=== PATIENT | female | born 1965 | race American Indian/Alaskan Native ===

== ENCOUNTER 2021-12-21 23:55 | Inpatient (IN) | payer SELFPAY ==
[2021-12-22] MEDS ORDERED: SODIUM CHLORIDE 0.9% 1000 ML IV SOLN IV ONE (00:41)
[2021-12-22] MEDS ORDERED: ACETAMINOPHEN 650 MG RECT SUPP PR ONE (00:42)
--- NOTE | 2021-12-22 00:45 | Emergency Department Report ---
ED General Adult HPI - General Chief complaint: Pain General Stated complaint: PEG TUBE DISLODGED Time Seen by Provider: 12/22/21 00:40 Source: patient, family, EMS ( EMS documentation not available at time of chart dictation ), RN notes reviewed, old records reviewed Mode of arrival: Stretcher Limitations: Altered Mental Status, Physical Limitation - History of Present Illness Initial comments: The patient was evaluated in the emergency department for symptoms described in the history of present illness. He/she was evaluated in the context of the global COVID-19 pandemic, which necessitated consideration that the patient might be at risk for infection with the virus that causes COVID-19. Institutional protocols and algorithms that pertain to the evaluation of patients at risk for COVID-19 are in a state of rapid change based on information released by regulatory bodies including the CDC and federal and state organizations. These policies and algorithms were followed during the patient's care in the emergency department. Please note that these policies, procedures and recommendations changed on a rapid basis. This is an unfortunate 56-year-old female with a history of end-stage esophageal cancer, who is currently a DO NOT RESUSCITATE, DO NOT INTUBATE. She is currently on home hospice for 3 weeks. She is not currently receiving chemotherapy or radiation therapy. She presents to the ER with her daughter, Ms. Solomon Stevenson; [phone] History obtained from patient's daughter, Ms. Stevenson. Patient presents today with her daughter requesting replacement of a feeding tube. Patient had a feeding tube placed in her left upper quadrant approximately 1 month ago at [facility]. The tube was dislodged today. The daughter does not have any additional complaints or concerns. The patient is a DO NOT RESUSCITATE, DO NOT INTUBATE. Patient's daughter articulates that patient's esophageal cancer is end-stage, and patient and family are interested only in palliative and comfort care measures only. -: This evening - Related Data Allergies Allergy/AdvReac Type Severity Reaction Status Date / Time No Known Allergies Allergy Unverified 12/22/21 00:04 ED Review of Systems ROS: Stated complaint: PEG TUBE DISLODGED Other details as noted in HPI Constitutional: malaise, weakness Respiratory: denies: wheezing Cardiovascular: as per HPI (Heart racing) Gastrointestinal: other (Dislodged feeding tube). denies: nausea, vomiting, diarrhea Neurological: weakness ED Past Medical Hx - Past Medical History Previous Medical History?: Yes Hx of Cancer: Yes (esophageal cancer) - Surgical History Past Surgical History?: Yes Additional Surgical History: PEG tube - Social History Smoking Status: Never Smoker Substance Use Type: None ED Physical Exam - General Limitations: Altered Mental Status, Physical Limitation General appearance: anxious, in distress - Head Head exam: Present: atraumatic, normocephalic - Eye Eye exam: Present: normal appearance - ENT ENT exam: Present: mucous membranes dry - Neck Neck exam: Present: normal inspection. Absent: tenderness, meningismus - Respiratory Respiratory exam: Present: respiratory distress. Absent: rales, rhonchi, stridor - Cardiovascular Cardiovascular Exam: Present: normal rhythm, tachycardia, normal heart sounds. Absent: bradycardia, irregular rhythm, systolic murmur, diastolic murmur, rubs, gallop - GI/Abdominal GI/Abdominal exam: Present: soft, tenderness, other (The left upper quadrant is tender. Left upper quadrant stoma is noted. There is purulent material noted coming from the stoma). Absent: distended, guarding, rebound, rigid, pulsatile mass - Extremities Exam Extremities exam: Present: normal inspection, other (2+ pulses noted in the bilateral upper and lower extremities. There is no palpable cord. negative Homans sign. Muscular compartments are soft. The pelvis is stable.). Absent: calf tenderness - Back Exam Back exam: Present: normal inspection. Absent: tenderness, paraspinal tenderness - Neurological Exam Neurological exam: Present: altered, other (The patient is awake. The patient is moaning. Her eyes are open spontaneously) - Psychiatric Psychiatric exam: Present: anxious - Skin Skin exam: Present: warm, dry, intact, normal color. Absent: rash ED Course Vital Signs 12/22/21 12/22/21 12/22/21 00:04 00:38 00:45 Temperature 98.7 F Pulse Rate 126 H 113 H 158 H Respiratory 26 H 31 H 30 H Rate Blood Pressure 125/78 O2 Sat by Pulse 94 99 99 Oximetry 12/22/21 12/22/21 12/22/21 01:01 01:15 01:31 Temperature Pulse Rate 160 H 156 H 148 H Respiratory 38 H 29 H 24 Rate Blood Pressure 131/92 131/92 O2 Sat by Pulse 100 99 100 Oximetry 12/22/21 12/22/21 12/22/21 01:45 02:01 02:15 Temperature Pulse Rate 144 H 137 H 132 H Respiratory 33 H 26 H 22 Rate Blood Pressure 131/92 188/157 188/157 O2 Sat by Pulse 100 99 99 Oximetry 12/22/21 12/22/21 12/22/21 02:30 03:02 03:16 Temperature Pulse Rate 131 H 117 H 117 H Respiratory 26 H 20 15 Rate Blood Pressure 188/157 114/94 69/42 O2 Sat by Pulse 98 100 99 Oximetry 12/22/21 12/22/21 12/22/21 03:30 03:46 04:00 Temperature Pulse Rate 114 H 112 H 109 H Respiratory 17 24 22 Rate Blood Pressure 69/42 69/42 69/43 O2 Sat by Pulse 99 99 99 Oximetry 12/22/21 12/22/21 04:15 04:31 Temperature Pulse Rate 100 H 100 H Respiratory 19 18 Rate Blood Pressure 69/42 69/45 O2 Sat by Pulse 100 100 Oximetry - Reevaluation(s) Reevaluation #1: 12/22/21 03:22 Differential diagnosis, including but not limited to: Bacteremia, viremia, pneumonia, UTI, sepsis, dehydration, abscess, cellulitis, dislodged feeding tube, esophageal cancer, encounter for advanced directive discussion Assessment and plan: 56-year-old female with a dislodged feeding tube. This is complicated by the fact that the feeding tube is a frustrating tube, and placed within the past month. There is obvious purulent material coming from the feeding tube, and the patient is also found to be septic, manifested by tachycardia, fever, lactic acidosis, and leukocytosis. Multiple extensive discussions were had with patient's family member Ms. Stevenson at the bedside. The patient is DO NOT RESUSCITATE, DO NOT INTUBATE. Family is only interested in comfort care measures and palliative measures. They are agreeable to fluids, pain medicine and antibiotics. They specifically are not interested in central line placement, intubation, mechanical ventilation, CPR, chest compressions or vasopressor therapy. Patient is also found to be hypercalcemic. I did specifically discuss my impression with the daughter that I am concerned that she may have severe sepsis or septic shock, and that she may without aggressive interventions. However, given that articulated goals of care are for comfort and palliative and palliation, vasopressors, central line are not not in accordance with goals of care, and therefore, will not be pursued by family and patient Given goals of care and advanced directives this is very reasonable. Explained to family that given fever, sepsis, fresh PEG tube stoma, I would not be able to replace the feeding tube. Family is agreeable to admission and hospitalization for correction of sepsis hypercalcemia, etc. Contacted GI physician on-call, Dr. Olaf Britton discussed the patient's history, physical, laboratory studies and imaging studies, and clinical impression. She will follow in consultation. Hospital physician, Dr. Yanet Wynne, To admit patient to the medical service Overall prognosis is quite poor. Ms. Stevenson is aware 12/22/21 03:33 12/22/21 04:22 12/22/21 05:26 ED Medical Decision Making - Lab Data Result diagrams: 12/22/21 01:05 12/22/21 01:05 Vital Signs 12/22/21 00:04 Temperature 98.7 F Pulse Rate 126 H Respiratory 26 H Rate Blood Pressure 125/78 O2 Sat by Pulse 94 Oximetry Lab Results 12/22/21 12/22/21 12/22/21 Range/Units 01:05 01:05 01:05 WBC 19.0 H (4.5-11.0) K/mm3 RBC 3.29 L (3.65-5.03) M/mm3 Hgb 10.2 (10.1-14.3) gm/dl Hct 33.0 (30.3-42.9) % MCV 100 H (79-97) fl MCH 31 (28-32) pg MCHC 31 (30-34) % RDW 16.6 H (13.2-15.2) % Plt Count 140 (140-440) K/mm3 Lymph % (Auto) 8.8 L (13.4-35.0) % [place] % (Auto) 6.3 (0.0-7.3) % Eos % (Auto) 0.7 (0.0-4.3) % Baso % (Auto) 0.1 (0.0-1.8) % Lymph # (Auto) 1.7 (1.2-5.4) K/mm3 [place] # (Auto) 1.2 H (0.0-0.8) K/mm3 Eos # (Auto) 0.1 (0.0-0.4) K/mm3 Baso # (Auto) 0.0 (0.0-0.1) K/mm3 Seg Neutrophils % 84.1 H (40.0-70.0) % Seg Neutrophils # 16.0 H (1.8-7.7) K/mm3 APTT 27.8 (24.2-36.6) Sec. Sodium 146 H (137-145) mmol/L Potassium 4.0 (3.6-5.0) mmol/L Chloride 112.1 H (98-107) mmol/L Carbon Dioxide 23 (22-30) mmol/L Anion Gap 15 mmol/L BUN 33 H (7-17) mg/dL Creatinine 0.7 (0.6-1.2) mg/dL Estimated GFR > 60 ml/min BUN/Creatinine Ratio 47 % Glucose 122 H (65-100) mg/dL Lactic Acid (0.7-2.0) mmol/L Calcium 12.7 H* (8.4-10.2) mg/dL Magnesium 2.20 (1.7-2.3) mg/dL Total Bilirubin 0.60 (0.1-1.2) mg/dL AST 46 H (5-40) units/L ALT 21 (7-56) units/L Alkaline Phosphatase 388 H (35-129) units/L Total Creatine Kinase 92 (30-135) units/L Total Protein 7.3 (6.3-8.2) g/dL Albumin 1.8 L (3.9-5) g/dL Albumin/Globulin Ratio 0.3 % TSH (0.270-4.200) mlU/mL 12/22/21 12/22/21 Range/Units 01:05 01:05 WBC (4.5-11.0) K/mm3 RBC (3.65-5.03) M/mm3 Hgb (10.1-14.3) gm/dl Hct (30.3-42.9) % MCV (79-97) fl MCH (28-32) pg MCHC (30-34) % RDW (13.2-15.2) % Plt Count (140-440) K/mm3 Lymph % (Auto) (13.4-35.0) % [place] % (Auto) (0.0-7.3) % Eos % (Auto) (0.0-4.3) % Baso % (Auto) (0.0-1.8) % Lymph # (Auto) (1.2-5.4) K/mm3 [place] # (Auto) (0.0-0.8) K/mm3 Eos # (Auto) (0.0-0.4) K/mm3 Baso # (Auto) (0.0-0.1) K/mm3 Seg Neutrophils % (40.0-70.0) % Seg Neutrophils # (1.8-7.7) K/mm3 APTT (24.2-36.6) Sec. Sodium (137-145) mmol/L Potassium (3.6-5.0) mmol/L Chloride (98-107) mmol/L Carbon Dioxide (22-30) mmol/L Anion Gap mmol/L BUN (7-17) mg/dL Creatinine (0.6-1.2) mg/dL Estimated GFR ml/min BUN/Creatinine Ratio % Glucose (65-100) mg/dL Lactic Acid 3.90 H* (0.7-2.0) mmol/L Calcium (8.4-10.2) mg/dL Magnesium (1.7-2.3) mg/dL Total Bilirubin (0.1-1.2) mg/dL AST (5-40) units/L ALT (7-56) units/L Alkaline Phosphatase (35-129) units/L Total Creatine Kinase (30-135) units/L Total Protein (6.3-8.2) g/dL Albumin (3.9-5) g/dL Albumin/Globulin Ratio % TSH 4.860 H (0.270-4.200) mlU/mL - EKG Data -: EKG Interpreted by Ia Rate: tachycardia - EKG Data 12/22/21 03:19 The EKG is interpreted at 03: 03 Low voltage, sinus rhythm, tachycardia, 116 bpm. Normal axis, normal P wave axis, atrial enlargement, QTC 5 7 8 ms. This is an abnormal EKG. This is not a STEMI - Radiology Data Radiology results: report reviewed, image reviewed [facility] [address] [place] [address] Cat Scan Report Signed Patient: ELOISA STEVENSON MR#: [id number] : 1965 Acct:[id number] Age/Sex: 56 / F ADM Date: 12/21/21 Loc: ED Attending Dr: Ordering Physician: JIMMIE TREVIZO MD Date of Service: 12/22/21 Procedure(s): CT abdomen pelvis w con Accession Number(s): [id number] cc: JIMMIE TREVIZO MD CT ABDOMEN AND PELVIS WITH CONTRAST INDICATION / CLINICAL INFORMATION: luq abscess. TECHNIQUE: Axial CT images were obtained through the abdomen and pelvis after 75 cc Omnipaque [address] scans at this location are performed using CT dose reduction for ALARA by means of automated exposure control. COMPARISON: None available. FINDINGS: LOWER CHEST: Moderate subsegmental atelectasis of the right lower lobe. 1.5 cm pulmonary nodule right lower lobe with central low attenuation. Small dependent right pleural effusion. LIVER: Grossly abnormal appearance of the right hepatic lobe. An expansile predominantly hypoattenuating multiloculated cystic lesion is present with some internal septation and multiple peripheral cysts. Additional hypoattenuating lesion of the lateral segment left hepatic lobe is present. Portal vein is patent. GALLBLADDER / BILE DUCTS: Gallstones and/or sludge without cholecystitis. Biliary ducts grossly unremarkable. SPLEEN: No significant abnormality. PANCREAS: Pancreas is grossly unremarkable. ADRENALS: No significant abnormality. KIDNEYS/URETERS: No stones or hydronephrosis. No solid renal lesion. STOMACH / DUODENUM / SMALL BOWEL: A hypoattenuating mass measuring 2.1 cm this closely approximated to the greater curvature of the mid fundus. No distinct air to suggest diverticulum. The duodenum and small bowel demonstrate no acute findings. No mesenteric lesions are clearly demonstrated. COLON: Moderate amount stool noted throughout the large bowel. APPENDIX: No significant abnormality. PERITONEUM: No free air or free fluid are present within the abdomen or pelvis. LYMPH NODES: No significant adenopathy. AORTA / ARTERIES: Severe atherosclerotic calcification without acute abnormality. IVC / VEINS: No significant abnormality. URINARY BLADDER: Nonspecific circumferential wall thickening. REPRODUCTIVE ORGANS: No significant abnormality. SKELETAL SYSTEM: No significant abnormality. ADDITIONAL ABDOMINAL/PELVIC FINDINGS: None. IMPRESSION: 1. Probable neoplastic process within the liver. 2. Additional 2.1 cm hypoattenuating lesion closely approximating the greater curvature of the stomach thought to be contiguous with the gastric wall as opposed to the adjacent pancreas. No distinct evidence of atrophy suggests diverticulum. Differential considerations include gastrointestinal stromal tumor, non-aerated diverticulum, other neoplastic process. 3. Other findings as detailed. Signer Name: Caleb Viramontes II, MD Signed: 12/22/2021 2:55 AM Workstation Name: [id number] Transcribed By: RICH Dictated By: CALEB VIRAMONTES II, MD Electronically Authenticated By: CALEB VIRAMONTES II, MD Signed Date/Time: 12/22/21254 DD/ 8 TD/TT: Critical Care Time: Yes Critical care time in (mins) excluding proc time.: 45 Critical care attestation.: If time is entered above; I have spent that time in minutes in the direct care of this critically ill patient, excluding procedure time. ED Disposition Clinical Impression: Esophageal cancer, Hypercalcemia, Sepsis, Dehydration, Advance directive in chart Disposition: 09 ADMITTED INPATIENT Is pt being admited?: Yes Does the pt Need Aspirin: No Condition: Poor
[2021-12-22 01:26] LABS: Basophils % (Auto) 0.1 % (0.0-1.8); Eosinophils # (Auto) 0.1 K/mm3 (0.0-0.4); Eosinophils % (Auto) 0.7 % (0.0-4.3); Hemoglobin 10.2 gm/dl (10.1-14.3); Lymphocytes # (Auto) 1.7 K/mm3 (1.2-5.4); Lymphocytes % (Auto) 8.8 % (13.4-35.0); Mean Corpuscular HGB Conc 31 % (30-34); Mean Corpuscular Volume 100 fl (79-97); Monocytes # (Auto) 1.2 K/mm3 (0.0-0.8); Monocytes % (Auto) 6.3 % (0.0-7.3); Red Blood Count 3.29 M/mm3 (3.65-5.03); Red Cell Distribution Width 16.6 % (13.2-15.2)
--- NOTE | 2021-12-22 01:27 | XRay Report ---
CHEST 1 VIEW INDICATION / CLINICAL INFORMATION: esophageal ca sepsis. COMPARISON: None available. FINDINGS: SUPPORT DEVICES: Right-sided venous access device terminates within the superior vena cava. HEART / MEDIASTINUM: Heart size is within normal limits. Mediastinal contour demonstrates no signific ant abnormality. LUNGS / PLEURA: Partially calcified hilar lymph nodes. Scattered granulomas bilaterally within the up per lungs. Left lung otherwise clear. Interstitial stranding overlying the right hemidiaphragm compat ible with atelectasis. The right lung otherwise clear. Mild elevation of the right hemidiaphragm. BONES: No significant osseous abnormality. ADDITIONAL FINDINGS: No significant additional findings. IMPRESSION: 1. Atelectatic changes are suggested overlying the right hemidiaphragm. Lungs otherwise are clear. Signer Name: Jan Wood II, MD Signed: 12/22/2021 1:23 AM Workstation Name: [id number]
[2021-12-22 01:44] LABS: Alanine Aminotransferase 21 units/L (7-56); Albumin 1.8 g/dL (3.9-5); Blood Urea Nitrogen 33 mg/dL (7-17); Hemolysis Index 1
[2021-12-22 01:54] LABS: Platelet Count 140 K/mm3 (140-440)
[2021-12-22] MEDS ORDERED: PIPERACILLIN/TAZOBACTAM 3.375 3.375 GM/50 ML BAG IV ONE (01:55)
[2021-12-22] MEDS ORDERED: VANCOMYCIN 750 MG in SODIUM CHLORIDE 0.9% 500 ML 500 ML IV ONE (01:55)
[2021-12-22] MEDS ORDERED: ONDANSETRON 4 MG/2 ML INJ IV ONE (01:56)
[2021-12-22] MEDS ORDERED: MORPHINE 4 MG/1 ML INJ IV ONE (01:56)
[2021-12-22 01:57] LABS: BUN/Creatinine Ratio 47
[2021-12-22 01:58] LABS: Calcium 12.7 mg/dL (8.4-10.2)
[2021-12-22] MEDS ORDERED: LACTATED RINGERS 1,000 ML IV ONE (02:01)
[2021-12-22] MEDS ORDERED: VANCOMYCIN/NS 1 GM/250 ML 1 GM/250 ML BAG IV ONE (03:00)
--- NOTE | 2021-12-22 03:00 | Cat Scan Report ---
CT ABDOMEN AND PELVIS WITH CONTRAST INDICATION / CLINICAL INFORMATION: luq abscess. TECHNIQUE: Axial CT images were obtained through the abdomen and pelvis after 75 cc Omnipaque [address] scans at this location are performed using CT dose reduction for ALARA by means of automated exposure control. COMPARISON: None available. FINDINGS: LOWER CHEST: Moderate subsegmental atelectasis of the right lower lobe. 1.5 cm pulmonary nodule right lower lobe with central low attenuation. Small dependent right pleural effusion. LIVER: Grossly abnormal appearance of the right hepatic lobe. An expansile predominantly hypoattenuat ing multiloculated cystic lesion is present with some internal septation and multiple peripheral cyst s. Additional hypoattenuating lesion of the lateral segment left hepatic lobe is present. Portal vein is patent. GALLBLADDER / BILE DUCTS: Gallstones and/or sludge without cholecystitis. Biliary ducts grossly unre markable. SPLEEN: No significant abnormality. PANCREAS: Pancreas is grossly unremarkable. ADRENALS: No significant abnormality. KIDNEYS/URETERS: No stones or hydronephrosis. No solid renal lesion. STOMACH / DUODENUM / SMALL BOWEL: A hypoattenuating mass measuring 2.1 cm this closely approximated t o the greater curvature of the mid fundus. No distinct air to suggest diverticulum. The duodenum and small bowel demonstrate no acute findings. No mesenteric lesions are clearly demonstrated. COLON: Moderate amount stool noted throughout the large bowel. APPENDIX: No significant abnormality. PERITONEUM: No free air or free fluid are present within the abdomen or pelvis. LYMPH NODES: No significant adenopathy. AORTA / ARTERIES: Severe atherosclerotic calcification without acute abnormality. IVC / VEINS: No significant abnormality. URINARY BLADDER: Nonspecific circumferential wall thickening. REPRODUCTIVE ORGANS: No significant abnormality. SKELETAL SYSTEM: No significant abnormality. ADDITIONAL ABDOMINAL/PELVIC FINDINGS: None. IMPRESSION: 1. Probable neoplastic process within the liver. 2. Additional 2.1 cm hypoattenuating lesion closely approximating the greater curvature of the stomac h thought to be contiguous with the gastric wall as opposed to the adjacent pancreas. No distinct zen dence of atrophy suggests diverticulum. Differential considerations include gastrointestinal stromal tumor, non-aerated diverticulum, other neoplastic process. 3. Other findings as detailed. Signer Name: Jan Wood II, MD Signed: 12/22/2021 2:55 AM Workstation Name: [id number]
[2021-12-22] MEDS ORDERED: ACETAMINOPHEN 650 MG RECT SUPP PR PRN (03:52)
[2021-12-22] MEDS ORDERED: MAGNESIUM HYDROXIDE (MOM) ORAL LIQD UDC PO PRN (03:52)
[2021-12-22] MEDS ORDERED: ONDANSETRON 4 MG/2 ML INJ IV PRN (03:52)
[2021-12-22] MEDS ORDERED: MORPHINE 4 MG/1 ML INJ IV PRN (03:52)
--- NOTE | 2021-12-22 04:01 | History and Physical Report ---
History of Present Illness Date of examination: 12/22/21 Date of admission: 12/22/2021 Chief complaint: Feeding tube Malfunction History of present illness: 56-year-old female with known history of end-stage was a 5-year past presenting to the emergency room today accompanied by daughter with a complaint of accidental exposure from a PEG tube. Daughter is requesting PEG tube replacement. Patient had PEG tube placed in the left upper quadrant about a month ago at an outside hospital but tube got dislodged today. Otherwise there was no other major complaints. Patient is currently DO NOT RESUSCITATE and DO NOT INTUBATE. Work-up in the emergency room today, significant findings were that of leukocytosis of 19, sodium of 146, BUN of 33 and creatinine of 1.7., Lactic acid of 3.9, calcium 12.7. Chest x-ray is significant for atelectatic changes overlying the right hemidiaphragm. Lungs are otherwise clear. CT of the abdomen and pelvis reveals: 1. Probable metastatic lesions within the liver from known esophageal cancer. 2. Additional 2.1 cm hypoattenuating lesion closely approximating the greater curvature of the stomach and GE junction compatible with known esophageal carcinoma. 3. Tract from the percutaneous gastrostomy tube is well formed with no intra- abdominal abscess. A small amount of fluid along the superficial soft tissues of the abdominal wall within the tract present possibly reflective of superficial abscess. Patient has been started on IV fluid and empiric IV antibiotics. Daughter who is by the bedside request only comfort measures. Past History Past Medical History: other (Esophageal ca.) Past Surgical History: Other (Peg tube) Social history: no significant social history Family history: no significant family history Medications and Allergies Allergies Allergy/AdvReac Type Severity Reaction Status Date / Time No Known Allergies Allergy Unverified 12/22/21 00:04 Active Meds: Active Medications Acetaminophen (Acetaminophen 650 Mg Rect Supp) 650 mg KS Q4H PRN PRN Reason: Pain MILD(1-3)/Fever >100.5/MOORE Heparin Sodium (Porcine) (Heparin 5,000 Unit/1 Ml Vial) 5,000 unit SUB-Q Q8HR RODNEY Vancomycin HCl (Vancomycin/Ns 1 Gm/250 Ml) 1 gm in 250 mls @ 250 mls/hr IV ONCE ONE Stop: 12/22/21 03:59 Last Admin: 12/22/21 03:17 Dose: 250 mls/hr Sodium Chloride (Nacl 0.9% 1000 Ml) 1,000 mls @ 150 mls/hr IV DIRECT RODNEY Magnesium Hydroxide (Magnesium Hydroxide (Mom) Oral Liqd Udc) 30 ml PO Q4H PRN PRN Reason: Constipation Morphine Sulfate (Morphine 2 Mg/1 Ml Inj) 2 mg IV Q4H PRN PRN Reason: Pain, Moderate (4-6) Morphine Sulfate (Morphine 4 Mg/1 Ml Inj) 4 mg IV Q4H PRN PRN Reason: Pain , Severe (7-10) Ondansetron HCl (Ondansetron 4 Mg/2 Ml Inj) 4 mg IV Q8H PRN PRN Reason: Nausea And Vomiting Sodium Chloride (Sodium Chloride 0.9% 10 Ml Flush Syringe) 10 ml IV BID RODNEY Sodium Chloride (Sodium Chloride 0.9% 10 Ml Flush Syringe) 10 ml IV PRN PRN PRN Reason: LINE FLUSH Review of Systems ROS unobtainable: due to mental status Exam - Constitutional Vitals: Temp Pulse Resp BP Pulse Ox 98.7 F 132 H 22 188/157 99 12/22/21 00:04 12/22/21 02:15 12/22/21 02:15 12/22/21 02:15 12/22/21 02:15 General appearance: Present: no acute distress, cachectic, other (Dry Oral Mucosa) - EENT Eyes: Present: PERRL, EOM intact. Absent: scleral icterus ENT: hearing intact, clear oral mucosa, dentition normal - Neck Neck: Present: supple, normal ROM - Respiratory Respiratory effort: normal Respiratory: bilateral: CTA - Cardiovascular Rhythm: regular Heart Sounds: Present: S1 & S2. Absent: gallop, systolic murmur, diastolic murmur, rub, click - Extremities Extremities: no ischemia, pulses intact, pulses symmetrical, No edema, normal temperature, normal color, Full ROM Peripheral Pulses: within normal limits - Abdominal General gastrointestinal: Present: soft, non-tender, non-distended, normal bowel sounds, other (Surgical site of peg tube in LUQ) - Integumentary Integumentary: Present: clear, warm, dry, normal turgor. Absent: rash - Musculoskeletal Musculoskeletal: generalized weakness - Psychiatric Psychiatric: cooperative - Neurologic Neurologic: other (Obtunded) Results - Labs CBC & Chem 7: 12/22/21 01:05 12/22/21 01:05 Labs: Abnormal lab results 12/22/21 12/22/21 12/22/21 Range/Units 01:05 01:05 01:05 WBC 19.0 H (4.5-11.0) K/mm3 RBC 3.29 L (3.65-5.03) M/mm3 MCV 100 H (79-97) fl RDW 16.6 H (13.2-15.2) % Lymph % (Auto) 8.8 L (13.4-35.0) % [place] # (Auto) 1.2 H (0.0-0.8) K/mm3 Seg Neutrophils % 84.1 H (40.0-70.0) % Seg Neutrophils # 16.0 H (1.8-7.7) K/mm3 Sodium 146 H (137-145) mmol/L Chloride 112.1 H (98-107) mmol/L BUN 33 H (7-17) mg/dL Glucose 122 H (65-100) mg/dL Lactic Acid 3.90 H* (0.7-2.0) mmol/L Calcium 12.7 H* (8.4-10.2) mg/dL AST 46 H (5-40) units/L Alkaline Phosphatase 388 H (35-129) units/L Albumin 1.8 L (3.9-5) g/dL TSH (0.270-4.200) mlU/mL 12/22/21 12/22/21 Range/Units 01:05 02:17 WBC (4.5-11.0) K/mm3 RBC (3.65-5.03) M/mm3 MCV (79-97) fl RDW (13.2-15.2) % Lymph % (Auto) (13.4-35.0) % [place] # (Auto) (0.0-0.8) K/mm3 Seg Neutrophils % (40.0-70.0) % Seg Neutrophils # (1.8-7.7) K/mm3 Sodium (137-145) mmol/L Chloride (98-107) mmol/L BUN (7-17) mg/dL Glucose (65-100) mg/dL Lactic Acid 2.60 H* (0.7-2.0) mmol/L Calcium (8.4-10.2) mg/dL AST (5-40) units/L Alkaline Phosphatase (35-129) units/L Albumin (3.9-5) g/dL TSH 4.860 H (0.270-4.200) mlU/mL Assessment and Plan Assessment: 1.Sepsis 2.Dehydration 3.Hypercalcemia 4.H/O Esophageal Ca. 5.Peg tube Malfunction Plan: 1.Admitted and placed on IV fluid and empiric antibiotics 2.Will await culture results 3.GI consult for peg tube replacement DVT prophylaxis: SQ Heparin. Full Code Status: DNR/DNI
[2021-12-22] MEDS: SODIUM CHLORIDE 0.9% 1000 ML 1,000 ML IV SCH ×2 (06:30→15:03)
[2021-12-22] MEDS: HEPARIN 5,000 UNIT/1 ML VIAL SUB-Q SCH ×3 (06:49→21:41)
[2021-12-22] MEDS: metroNIDAZOLE/NS 500 MG/100 ML 500 MG/100 ML BAG IV SCH ×3 (09:48→23:59)
[2021-12-22] MEDS: CEFEPIME/NS 2 GM/100 ML 2 GM/100 ML BAG IV SCH ×2 (09:48→21:41)
[2021-12-22] MEDS ORDERED: VANCOMYCIN PHARMACY TO DOSE IV SCH (10:00)
--- NOTE | 2021-12-22 10:56 | Event Note ---
Date: 12/22/21 Patient seen at bedside. Alert and attempts to talk but only mumbles. Groans when abdomen is palpated. Currently awaiting GI to replace palliative PEG tube. We will continue empiric antibiotics for now.
[2021-12-22] MEDS ORDERED: METOPROLOL TARTRATE 5 MG/5 ML INJ IV ONE (13:06)
[2021-12-22] MEDS ORDERED: NEOMY 3.5 MG/BACIT 400 UNITS/POLY B 5000 UNITS/GM OINT PACKET TP ONE (13:08)
[2021-12-22] MEDS: MORPHINE 2 MG/1 ML INJ IV PRN ×2 (13:32→23:51)
--- NOTE | 2021-12-22 14:11 | Electrocardiograph Report ---
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
--- NOTE | 2021-12-22 14:25 | Gastroenterology Consultation ---
History of Present Illness - Reason for Consult Consult date: 12/22/21 Infected PEG Requesting physician: BERTHA MERINO - History of Present Illness The history is per the chart and daughter; the patient is nonverbal. She has mets esophageal cancer and was recently placed on hospice. A palliative PEG tube was placed last month at [facility], but she was brought to the ER last night after the PEG fell out. There was pus present at the fistula, and a CT showed a superficial abscess pocket. She had an elevated WBC and lactic acid. There have been no fevers overnight. Past History Past Medical History: other (Esophageal ca. (stage IV, on hospice, mets to liver)) Past Surgical History: Other (Peg tube) Social history: no significant social history, lives with family, AND/DNR-allow natural , other (in hospice at home) Family history: no significant family history Medications and Allergies Allergies Allergy/AdvReac Type Severity Reaction Status Date / Time No Known Allergies Allergy Unverified 12/22/21 00:04 Active Meds: Active Medications Acetaminophen (Acetaminophen 650 Mg Rect Supp) 650 mg ND Q4H PRN PRN Reason: Pain MILD(1-3)/Fever >100.5/MOORE Heparin Sodium (Porcine) (Heparin 5,000 Unit/1 Ml Vial) 5,000 unit SUB-Q Q8HR RODNEY Last Admin: 12/22/21 06:49 Dose: Not Given Sodium Chloride (Nacl 0.9% 1000 Ml) 1,000 mls @ 150 mls/hr IV DIRECT RODNEY Last Admin: 12/22/21 06:30 Dose: 150 mls/hr Cefepime HCl (Cefepime/Ns 2 Gm/100 Ml) 2 gm in 100 mls @ 200 mls/hr IV Q12H RODNEY; Protocol Last Admin: 12/22/21 09:48 Dose: 200 mls/hr Metronidazole (Flagyl 500 Mg/100 Ml) 500 mg in 100 mls @ 100 mls/hr IV Q8H RODNEY; Protocol Last Admin: 12/22/21 09:48 Dose: 100 mls/hr Vancomycin HCl 750 mg/ Sodium (Chloride) 265 mls @ 166.667 mls/hr IV Q12H RODNEY Magnesium Hydroxide (Magnesium Hydroxide (Mom) Oral Liqd Udc) 30 ml PO Q4H PRN PRN Reason: Constipation Morphine Sulfate (Morphine 2 Mg/1 Ml Inj) 2 mg IV Q4H PRN PRN Reason: Pain, Moderate (4-6) Last Admin: 12/22/21 13:32 Dose: 2 mg Morphine Sulfate (Morphine 4 Mg/1 Ml Inj) 4 mg IV Q4H PRN PRN Reason: Pain , Severe (7-10) Last Admin: 12/22/21 09:58 Dose: 4 mg Ondansetron HCl (Ondansetron 4 Mg/2 Ml Inj) 4 mg IV Q8H PRN PRN Reason: Nausea And Vomiting Sodium Chloride (Sodium Chloride 0.9% 10 Ml Flush Syringe) 10 ml IV BID RODNEY Last Admin: 12/22/21 10:00 Dose: 10 ml Sodium Chloride (Sodium Chloride 0.9% 10 Ml Flush Syringe) 10 ml IV PRN PRN PRN Reason: LINE FLUSH I HAVE REVIEWED AND RECONCILED MEDICATIONS Review of Systems - Review of Systems ROS unobtainable: due to mental status Exam - Constitutional Vital Signs: Temp Pulse Resp BP Pulse Ox 98.7 F 153 H 14 89/63 100 12/22/21 00:04 12/22/21 13:28 12/22/21 08:00 12/22/21 06:22 12/22/21 08:00 General appearance: mild distress, cachectic - EENT Eyes: PERRL, EOM intact ENT: clear oral mucosa, no thrush - Neck Neck: supple, normal ROM - Respiratory Respiratory effort: normal Respiratory: bilateral: CTA - Cardiovascular Rhythm: regular Heart Sounds: Present: S1 & S2 Extremities: no ischemia, No edema - Gastrointestinal General gastrointestinal: Present: soft, tender, non-distended, other (Purulent drainage at PEG site, and mild swelling/heat/tenderness) - Integumentary Integumentary: Present: clear, warm - Neurologic Neurological: disoriented - Labs CBC & Chem 7: 12/22/21 01:05 12/22/21 01:05 Lab Results: Laboratory Results - last 24 hr 12/22/21 12/22/21 12/22/21 01:05 01:05 01:05 WBC 19.0 H RBC 3.29 L Hgb 10.2 Hct 33.0 MCV 100 H MCH 31 MCHC 31 RDW 16.6 H Plt Count 140 Lymph % (Auto) 8.8 L [place] % (Auto) 6.3 Eos % (Auto) 0.7 Baso % (Auto) 0.1 Lymph # (Auto) 1.7 [place] # (Auto) 1.2 H Eos # (Auto) 0.1 Baso # (Auto) 0.0 Seg Neutrophils % 84.1 H Seg Neutrophils # 16.0 H APTT 27.8 Sodium 146 H Potassium 4.0 Chloride 112.1 H Carbon Dioxide 23 Anion Gap 15 BUN 33 H Creatinine 0.7 Estimated GFR > 60 BUN/Creatinine Ratio 47 Glucose 122 H Lactic Acid Calcium 12.7 H* Magnesium 2.20 Total Bilirubin 0.60 AST 46 H ALT 21 Alkaline Phosphatase 388 H Total Creatine Kinase 92 Total Protein 7.3 Albumin 1.8 L Albumin/Globulin Ratio 0.3 TSH 12/22/21 12/22/21 12/22/21 01:05 01:05 02:17 WBC RBC Hgb Hct MCV MCH MCHC RDW Plt Count Lymph % (Auto) [place] % (Auto) Eos % (Auto) Baso % (Auto) Lymph # (Auto) [place] # (Auto) Eos # (Auto) Baso # (Auto) Seg Neutrophils % Seg Neutrophils # APTT Sodium Potassium Chloride Carbon Dioxide Anion Gap BUN Creatinine Estimated GFR BUN/Creatinine Ratio Glucose Lactic Acid 3.90 H* 2.60 H* Calcium Magnesium Total Bilirubin AST ALT Alkaline Phosphatase Total Creatine Kinase Total Protein Albumin Albumin/Globulin Ratio TSH 4.860 H 12/22/21 12/22/21 12/22/21 06:34 09:15 11:00 WBC RBC Hgb Hct MCV MCH MCHC RDW Plt Count Lymph % (Auto) [place] % (Auto) Eos % (Auto) Baso % (Auto) Lymph # (Auto) [place] # (Auto) Eos # (Auto) Baso # (Auto) Seg Neutrophils % Seg Neutrophils # APTT Sodium Potassium Chloride Carbon Dioxide Anion Gap BUN Creatinine Estimated GFR BUN/Creatinine Ratio Glucose Lactic Acid 2.00 1.10 Calcium 8.8 D Magnesium Total Bilirubin AST ALT Alkaline Phosphatase Total Creatine Kinase Total Protein Albumin Albumin/Globulin Ratio TSH Assessment and Plan - Patient Problems (1) Abdominal wall abscess at site of surgical wound Current Visit: Yes Status: Acute Plan to address problem: - Given the active purulent drainage, I would not replace the PEG tube (jodi with elevated WBC and lactic acid). - With an esophageal mass seen on CT, I do not favor Dobhoff feeding. - I will place a consult for PICC/TPN for palliative/hospice purposes as this would be the least invasive solution at present. The daughter is in agreement. - We will sign off; please call if needed. (2) Esophageal cancer, stage IV Current Visit: Yes Status: Acute
[2021-12-22] MEDS ORDERED: AMINO ACIDS 4.25%/DEXTROSE 10% 2,000 ML IV SCH (17:00)
--- NOTE | 2021-12-22 17:24 | XRay Report ---
CHEST 1 VIEW 12/22/2021 4:02 PM INDICATION / CLINICAL INFORMATION: picc placement. COMPARISON: Exam done earlier today FINDINGS: SUPPORT DEVICES: Left upper extremity PICC tip is projecting into the jugular vein. Right-sided clavi an port appears in stable position. HEART / MEDIASTINUM: Stable. LUNGS / PLEURA: Stable scattered calcified granulomata and right basilar atelectasis. No pneumothorax . ADDITIONAL FINDINGS: No significant additional findings. IMPRESSION: 1. Left upper extremity PICC tip projects into the jugular vein, repositioning needed. Signer Name: Lee Cronin MD Signed: 12/22/2021 5:19 PM Workstation Name: [id number]
[2021-12-22] MEDS: VANCOMYCIN 750 MG in SODIUM CHLORIDE 0.9% 250ML 250 ML IV SCH (18:50)
[2021-12-23] MEDS: SODIUM CHLORIDE 0.9% 1000 ML 1,000 ML IV SCH ×2 (02:27→09:12)
[2021-12-23 05:45] LABS: Basophils % (Auto) 0.1 % (0.0-1.8); Eosinophils # (Auto) 0.1 K/mm3 (0.0-0.4); Eosinophils % (Auto) 0.3 % (0.0-4.3); Hematocrit 26.3 % (30.3-42.9); Hemoglobin 8.2 gm/dl (10.1-14.3); Lymphocytes # (Auto) 0.8 K/mm3 (1.2-5.4); Lymphocytes % (Auto) 4.8 % (13.4-35.0); Mean Corpuscular HGB Conc 31 % (30-34); Mean Corpuscular Volume 101 fl (79-97); Monocytes # (Auto) 0.9 K/mm3 (0.0-0.8); Monocytes % (Auto) 5.4 % (0.0-7.3); Red Cell Distribution Width 16.4 % (13.2-15.2)
[2021-12-23 05:46] LABS: Platelet Count 84 K/mm3 (140-440)
[2021-12-23 06:00] LABS: Blood Urea Nitrogen 24 mg/dL (7-17); Hemolysis Index 0
[2021-12-23 06:15] LABS: BUN/Creatinine Ratio 48
[2021-12-23] MEDS: VANCOMYCIN 750 MG in SODIUM CHLORIDE 0.9% 250ML 250 ML IV SCH ×2 (06:52→18:28)
[2021-12-23] MEDS: HEPARIN 5,000 UNIT/1 ML VIAL SUB-Q SCH ×3 (06:53→21:42)
--- NOTE | 2021-12-23 08:07 | Progress Note ---
Assessment and Plan Assessment and plan: 1.Sepsis 2.Dehydration 3.Hypercalcemia 4.H/O Esophageal Ca. 5.Peg tube Malfunction Severe hypokalemia -Potassium this morning was 2.8 -I ordered 40 mEq of IV potassium, I will recheck BMP this afternoon Plan: 1.Admitted and placed on IV fluid and empiric antibiotics -Blood culture is on the low side of normal -Continue with IV fluids and IV antibiotics; patient is on IV Flagyl, cefepime and vancomycin 2.Will await culture results -Blood cultures negative so far 3.GI consult for peg tube replacement -GI evaluated the patient and recommend palliative TPN, ordered a PICC line. Patient started on TPN -Recommend againest PEG tube replacement because patient has abdominal wall infection DVT prophylaxis: SQ Heparin. Full Code Status: DNR/DNI History Interval history: Patient was seen and evaluated this morning Patient was minimally responsive Management plan was discussed with the daughter Hospitalist Physical - Physical exam Narrative exam: Not in cardiopulmonary distress. The patient appeared well nourished and normally developed. Vital signs as documented. Head exam is unremarkable. No scleral icterus . Neck is without jugular venous distension, thyromegaly, or carotid bruits. Lungs are clear to auscultation. Cardiac exam reveals regular rate and Rhythm. Abdominal exam reveals normal bowel sounds, nontender, no organomegaly. Extremities are nonedematous and both femoral and pedal pulses are normal. 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 - Constitutional Vitals: Temp Pulse Resp BP Pulse Ox 96.8 F L 126 H 20 93/66 99 12/23/21 04:05 12/23/21 04:05 12/23/21 04:05 12/23/21 04:05 12/23/21 04:05 General appearance: Present: no acute distress, cachectic, other (Dry Oral Mucosa) Results - Labs CBC & Chem 7: 12/23/21 05:13 12/23/21 05:13 Labs: Laboratory Last Values WBC 17.1 K/mm3 (4.5-11.0) H 12/23/21 05:13 RBC 2.60 M/mm3 (3.65-5.03) L 12/23/21 05:13 Hgb 8.2 gm/dl (10.1-14.3) L 12/23/21 05:13 Hct 26.3 % (30.3-42.9) L D 12/23/21 05:13 MCV 101 fl (79-97) H 12/23/21 05:13 MCH 31 pg (28-32) 12/23/21 05:13 MCHC 31 % (30-34) 12/23/21 05:13 RDW 16.4 % (13.2-15.2) H 12/23/21 05:13 Plt Count 84 K/mm3 (140-440) L 12/23/21 05:13 Lymph % (Auto) 4.8 % (13.4-35.0) L 12/23/21 05:13 [place] % (Auto) 5.4 % (0.0-7.3) 12/23/21 05:13 Eos % (Auto) 0.3 % (0.0-4.3) 12/23/21 05:13 Baso % (Auto) 0.1 % (0.0-1.8) 12/23/21 05:13 Lymph # (Auto) 0.8 K/mm3 (1.2-5.4) L 12/23/21 05:13 [place] # (Auto) 0.9 K/mm3 (0.0-0.8) H 12/23/21 05:13 Eos # (Auto) 0.1 K/mm3 (0.0-0.4) 12/23/21 05:13 Baso # (Auto) 0.0 K/mm3 (0.0-0.1) 12/23/21 05:13 Seg Neutrophils % 89.4 % (40.0-70.0) H 12/23/21 05:13 Seg Neutrophils # 15.2 K/mm3 (1.8-7.7) H 12/23/21 05:13 APTT 27.8 Sec. (24.2-36.6) 12/22/21 01:05 Sodium 147 mmol/L (137-145) H 12/23/21 05:13 Potassium 2.8 mmol/L (3.6-5.0) L* D 12/23/21 05:13 Chloride 118.4 mmol/L (98-107) H 12/23/21 05:13 Carbon Dioxide 20 mmol/L (22-30) L 12/23/21 05:13 Anion Gap 11 mmol/L 12/23/21 05:13 BUN 24 mg/dL (7-17) H 12/23/21 05:13 Creatinine 0.5 mg/dL (0.6-1.2) L 12/23/21 05:13 Estimated GFR > 60 ml/min 12/23/21 05:13 BUN/Creatinine Ratio 48 % 12/23/21 05:13 Glucose 141 mg/dL (65-100) H 12/23/21 05:13 Lactic Acid 1.10 mmol/L (0.7-2.0) 12/22/21 09:15 Calcium 11.0 mg/dL (8.4-10.2) H D 12/23/21 05:13 Phosphorus 2.20 mg/dL (2.5-4.5) L 12/23/21 05:13 Magnesium 1.50 mg/dL (1.7-2.3) L 12/23/21 05:13 Total Bilirubin 0.60 mg/dL (0.1-1.2) 12/22/21 01:05 AST 46 units/L (5-40) H 12/22/21 01:05 ALT 21 units/L (7-56) 12/22/21 01:05 Alkaline Phosphatase 388 units/L (35-129) H 12/22/21 01:05 Total Creatine Kinase 92 units/L (30-135) 12/22/21 01:05 Total Protein 7.3 g/dL (6.3-8.2) 12/22/21 01:05 Albumin 1.8 g/dL (3.9-5) L 12/22/21 01:05 Albumin/Globulin Ratio 0.3 % 12/22/21 01:05 TSH 4.860 mlU/mL (0.270-4.200) H 12/22/21 01:05 Microbiology: Microbiology 12/22/21 01:05 Peripheral/Venous Blood Culture - Preliminary NO GROWTH AFTER 24 HOURS 12/22/21 01:33 Peripheral/Venous Blood Culture - Preliminary NO GROWTH AFTER 24 HOURS Active Medications - Current Medications Current Medications: Generic Name Dose Route Start Last Admin Trade Name Freq PRN Reason Stop Dose Admin Acetaminophen 650 mg 12/22/21 03:52 Acetaminophen 650 Mg Rect Supp VA Q4H PRN Pain MILD(1-3)/Fever >100.5/MOORE Heparin Sodium (Porcine) 5,000 unit 12/22/21 06:00 12/23/21 06:53 Heparin 5,000 Unit/1 Ml Vial SUB-Q Not Given Q8HR RODNEY Sodium Chloride 1,000 mls @ 150 mls/hr 12/22/21 04:00 12/23/21 02:27 Nacl 0.9% 1000 Ml IV 150 mls/hr DIRECT RODNEY Administration Cefepime HCl 2 gm in 100 mls @ 200 mls/hr 12/22/21 10:00 12/22/21 21:41 Cefepime/Ns 2 Gm/100 Ml IV 200 mls/hr Q12H RODNEY Administration Protocol Metronidazole 500 mg in 100 mls @ 100 mls/hr 12/22/21 09:00 12/22/21 23:59 Flagyl 500 Mg/100 Ml IV 100 mls/hr Q8H RODNEY Administration Protocol Vancomycin HCl 750 mg/ Sodium 265 mls @ 166.667 mls/hr 12/22/21 16:00 12/23/21 06:52 Chloride IV 166.667 mls/hr Q12H RODNEY Administration Amino Acids 2,000 mls @ 75 mls/hr 12/22/21 17:00 12/22/21 20:23 Clinimix 4.25%-10% Solution IV 12/23/21 16:59 75 mls/hr ONCE RODNEY Administration Potassium Chloride 10 meq in 100 mls @ 100 mls/hr 12/23/21 09:00 Kcl 10meq/100ml IV 12/23/21 12:59 Q1H RODNEY Magnesium Hydroxide 30 ml 12/22/21 03:52 Magnesium Hydroxide (Mom) Oral Liqd Udc PO Q4H PRN Constipation Morphine Sulfate 2 mg 12/22/21 03:52 12/22/21 23:51 Morphine 2 Mg/1 Ml Inj IV 2 mg Q4H PRN Administration Pain, Moderate (4-6) Morphine Sulfate 4 mg 12/22/21 03:52 12/22/21 09:58 Morphine 4 Mg/1 Ml Inj IV 4 mg Q4H PRN Administration Pain , Severe (7-10) Ondansetron HCl 4 mg 12/22/21 03:52 Ondansetron 4 Mg/2 Ml Inj IV Q8H PRN Nausea And Vomiting Sodium Chloride 10 ml 12/22/21 10:00 12/22/21 21:42 Sodium Chloride 0.9% 10 Ml Flush Syringe IV 10 ml BID RODNEY Administration Sodium Chloride 10 ml 12/22/21 03:52 Sodium Chloride 0.9% 10 Ml Flush Syringe IV PRN PRN LINE FLUSH Nutrition/Malnutrition Assess - Dietary Evaluation Nutrition/Malnutrition Findings: Nutrition Notes Start: 12/22/21 12:47 Freq: Status: Active Protocol: Document 12/22/21 12:47 ALEJANDRO (Rec: 12/22/21 12:54 ALEJANDRO [email or web address]) Nutrition Notes Need for Assessment generated from: MD Order,set builder,Low BMI Initial or Follow up Assessment Current Diagnosis Sepsis Other Pertinent Diagnosis PEG tube infection, Dehydration, Stage 4 metastatic Esophageal CA Current Diet NPO Labs/Tests Na 146 BUN 33 Ca 12.7 TSH 4.86 Pertinent Medications NS at 150ml/hr Height 5 ft 6 in Weight 45.359 kg [place] Body Weight (kg) 59.09 BMI 16.1 Weight Status Underweight Subjective/Other Information RD consulted for TPN. Pt screened for skin risk (Kenny score: 13), hx of receiving NTR support, and low BMI. CT scan revealed probable metastatic lesions in liver. GI consulted for PEG tube replacement; pt with abdominal abscess at site of surgical wound. Burn Absent Trauma Absent Difficulty In Swallowing Skin Integrity/Comment Sacral wound Minimum of two criteria Yes Body Fat Depletion Moderate depletion (severe) Muscle Mass Moderate Depletion (severe) Protein-Calorie Malnutrition Severe #1 Nutrition Diagnosis Underweight Etiology metastatic CA As Evidenced by Signs and Symptoms BMI 16.1 Is patient on ventilator? No Is Patient Ambulatory and/or Out of Bed No REE-([facility]-confined to bed) 1265.436 Kcal/Kg value to use for calculation 40 Approximate Energy Requirements Using 1814 kcal/Kg Calculation Used for Recommendations Kcal/kg Additional Notes Pro needs 1.25-1.5g/k-68g /day Fluid needs 1ml/kcal Nutrition Intervention Nutrition Support: Start Clinimix 4.25%/10% at 75ml/hr Kcal 918 Protein (gm) 77 Carbohydrates (gm) 180 Fluid (mL) 1,800 Fiber (gm) 0 Goal #1 PN to meet 100% energy and pro needs Goal #2 Wt maintenance and/or gain Follow-Up By: 12/23/21 Additional Comments F/U: Start PN, labs ordered ( BMP, Mg, Phos)
[2021-12-23] MEDS: CEFEPIME/NS 2 GM/100 ML 2 GM/100 ML BAG IV SCH ×2 (09:10→21:15)
[2021-12-23] MEDS: POTASSIUM CHLORIDE 10 MEQ 10 MEQ/100 ML BAG IV SCH ×3 (09:11→16:20)
[2021-12-23] MEDS: metroNIDAZOLE/NS 500 MG/100 ML 500 MG/100 ML BAG IV SCH ×2 (10:31→16:20)
[2021-12-23] MEDS ORDERED: SODIUM CHLORIDE 0.9% 1000 ML 1,000 ML IV ONE (11:00)
[2021-12-23 11:20] LABS: Bilirubin,Urine NEG (Negative); Blood,Urine NEG (Negative); Color,Urine Yellow (Yellow)
[2021-12-23 11:22] LABS: Bacteria,Urine 1+ /HPF (Negative); Mucus,Urine FEW /HPF
[2021-12-23] MEDS: KETOROLAC 30 MG/1 ML INJ IV PRN (11:36)
[2021-12-23 18:53] LABS: Blood Urea Nitrogen 26 mg/dL (7-17); Calcium 10.3 mg/dL (8.4-10.2); Hemolysis Index 10
[2021-12-23 18:55] LABS: BUN/Creatinine Ratio 52
[2021-12-23] MEDS ORDERED: TOTAL PARENTERAL NUTRITION 1,800 ML IV SCH (20:00)
[2021-12-23] MEDS ORDERED: SODIUM CHLORIDE 0.9% 100 ML IVPB IV SCH (22:00)
[2021-12-23] MEDS ORDERED: POTASSIUM CHLORIDE 10 MEQ 10 MEQ/100 ML BAG IV SCH (22:00)
[2021-12-23] MEDS ORDERED: POTASSIUM CHLORIDE IV ONE (22:45)
[2021-12-23] MEDS ORDERED: MAGNESIUM SULFATE IV ONE (22:45)
[2021-12-23] MEDS ORDERED: SODIUM CHLORIDE 0.9% IV ONE (22:45)
[2021-12-24] MEDS: metroNIDAZOLE/NS 500 MG/100 ML 500 MG/100 ML BAG IV SCH ×3 (00:35→17:33)
[2021-12-24] MEDS: HEPARIN 5,000 UNIT/1 ML VIAL SUB-Q SCH ×2 (05:40→13:25)
[2021-12-24] MEDS: VANCOMYCIN 750 MG in SODIUM CHLORIDE 0.9% 250ML 250 ML IV SCH ×2 (05:40→19:13)
[2021-12-24] MEDS: SODIUM CHLORIDE 0.9% 1000 ML 1,000 ML IV SCH (05:43)
[2021-12-24 06:13] LABS: Basophils % (Auto) 0.1 % (0.0-1.8); Eosinophils # (Auto) 0.1 K/mm3 (0.0-0.4); Eosinophils % (Auto) 0.3 % (0.0-4.3); Hematocrit 26.5 % (30.3-42.9); Hemoglobin 7.9 gm/dl (10.1-14.3); Lymphocytes # (Auto) 0.9 K/mm3 (1.2-5.4); Mean Corpuscular HGB Conc 30 % (30-34); Mean Corpuscular Volume 102 fl (79-97); Monocytes # (Auto) 0.8 K/mm3 (0.0-0.8); Monocytes % (Auto) 5.1 % (0.0-7.3); Red Cell Distribution Width 17.2 % (13.2-15.2)
[2021-12-24 06:15] LABS: Platelet Count 48 K/mm3 (140-440)
[2021-12-24 06:26] LABS: Blood Urea Nitrogen 26 mg/dL (7-17); Calcium 10.8 mg/dL (8.4-10.2); Hemolysis Index 3
[2021-12-24 07:01] LABS: BUN/Creatinine Ratio 65
[2021-12-24] MEDS ORDERED: POTASSIUM CHLORIDE 10 MEQ 10 MEQ/100 ML BAG IV SCH (08:00)
--- NOTE | 2021-12-24 08:15 | Progress Note ---
Assessment and Plan Assessment and plan: 1.Sepsis 2.Dehydration 3.Hypercalcemia 4.H/O Esophageal Ca. 5.Peg tube Malfunction Severe hypokalemia -Potassium this morning was 2.8 -I ordered 40 mEq of IV potassium, I will recheck BMP this afternoon Plan: 1.Admitted and placed on IV fluid and empiric antibiotics -Blood pressure was low despite bolus of IV fluids -Continue with IV fluids and IV antibiotics; patient is on IV Flagyl, cefepime and vancomycin 2.Will await culture results -Blood cultures negative so far 3.GI consult for peg tube replacement -GI evaluated the patient and recommend palliative TPN, ordered a PICC line. Patient started on TPN -Recommend againest PEG tube replacement because patient has abdominal wall infection I have discussed with the daughter, patient wants to go home. Patient is on home hospice and if the daughter wants to take her is okay to take the patient home and resume home hospice. DVT prophylaxis: SQ Heparin. Full Code Status: DNR/DNI History Interval history: Patient was seen and evaluated this morning Patient wants to go home Management plan was discussed with the daughter Hospitalist Physical - Physical exam Narrative exam: Not in cardiopulmonary distress. The patient appeared well nourished and normally developed. Vital signs as documented. Head exam is unremarkable. No scleral icterus . Neck is without jugular venous distension, thyromegaly, or carotid bruits. Lungs are clear to auscultation. Cardiac exam reveals regular rate and Rhythm. Abdominal exam reveals normal bowel sounds, nontender, no organomegaly. Extremities are nonedematous and both femoral and pedal pulses are normal. 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 - Constitutional Vitals: Temp Pulse Resp BP Pulse Ox 97.0 F L 105 H 16 94/56 97 12/24/21 03:54 12/24/21 06:00 12/24/21 03:54 12/24/21 03:54 12/24/21 03:54 General appearance: Present: no acute distress, cachectic, other (Dry Oral Mucosa) Results - Labs CBC & Chem 7: 12/24/21 Unknown 12/24/21 Unknown Labs: Laboratory Last Values WBC 15.9 K/mm3 (4.5-11.0) H 12/24/21 Unknown RBC 2.60 M/mm3 (3.65-5.03) L 12/24/21 Unknown Hgb 7.9 gm/dl (10.1-14.3) L 12/24/21 Unknown Hct 26.5 % (30.3-42.9) L 12/24/21 Unknown MCV 102 fl (79-97) H 12/24/21 Unknown MCH 31 pg (28-32) 12/24/21 Unknown MCHC 30 % (30-34) 12/24/21 Unknown RDW 17.2 % (13.2-15.2) H 12/24/21 Unknown Plt Count 48 K/mm3 (140-440) L 12/24/21 Unknown Lymph % (Auto) 6.0 % (13.4-35.0) L 12/24/21 Unknown [place] % (Auto) 5.1 % (0.0-7.3) 12/24/21 Unknown Eos % (Auto) 0.3 % (0.0-4.3) 12/24/21 Unknown Baso % (Auto) 0.1 % (0.0-1.8) 12/24/21 Unknown Lymph # (Auto) 0.9 K/mm3 (1.2-5.4) L 12/24/21 Unknown [place] # (Auto) 0.8 K/mm3 (0.0-0.8) 12/24/21 Unknown Eos # (Auto) 0.1 K/mm3 (0.0-0.4) 12/24/21 Unknown Baso # (Auto) 0.0 K/mm3 (0.0-0.1) 12/24/21 Unknown Seg Neutrophils % 88.5 % (40.0-70.0) H 12/24/21 Unknown Seg Neutrophils # 14.1 K/mm3 (1.8-7.7) H 12/24/21 Unknown APTT 27.8 Sec. (24.2-36.6) 12/22/21 01:05 Sodium 146 mmol/L (137-145) H 12/24/21 Unknown Potassium 3.8 mmol/L (3.6-5.0) D 12/24/21 Unknown Chloride 122.6 mmol/L (98-107) H 12/24/21 Unknown Carbon Dioxide 17 mmol/L (22-30) L 12/24/21 Unknown Anion Gap 10 mmol/L 12/24/21 Unknown BUN 26 mg/dL (7-17) H 12/24/21 Unknown Creatinine 0.4 mg/dL (0.6-1.2) L 12/24/21 Unknown Estimated GFR > 60 ml/min 12/24/21 Unknown BUN/Creatinine Ratio 65 % 12/24/21 Unknown Glucose 129 mg/dL (65-100) H 12/24/21 Unknown POC Glucose 101 mg/dL (70-105) 12/24/21 04:51 Lactic Acid 1.10 mmol/L (0.7-2.0) 12/22/21 09:15 Calcium 10.8 mg/dL (8.4-10.2) H 12/24/21 Unknown Phosphorus 2.50 mg/dL (2.5-4.5) 12/24/21 Unknown Magnesium 1.90 mg/dL (1.7-2.3) 12/24/21 Unknown Total Bilirubin 0.60 mg/dL (0.1-1.2) 12/22/21 01:05 AST 46 units/L (5-40) H 12/22/21 01:05 ALT 21 units/L (7-56) 12/22/21 01:05 Alkaline Phosphatase 388 units/L (35-129) H 12/22/21 01:05 Total Creatine Kinase 92 units/L (30-135) 12/22/21 01:05 Total Protein 7.3 g/dL (6.3-8.2) 12/22/21 01:05 Albumin 1.8 g/dL (3.9-5) L 12/22/21 01:05 Albumin/Globulin Ratio 0.3 % 12/22/21 01:05 TSH 4.860 mlU/mL (0.270-4.200) H 12/22/21 01:05 Urine Color Yellow (Yellow) 12/23/21 08:00 Urine Turbidity Slightly-cloudy (Clear) 12/23/21 08:00 Urine pH 5.0 (5.0-7.0) 12/23/21 08:00 Ur Specific Reading 1.041 (1.003-1.030) H 12/23/21 08:00 Urine Protein 30 mg/dl mg/dL (Negative) 12/23/21 08:00 Urine Glucose (UA) Neg mg/dL (Negative) 12/23/21 08:00 Urine Ketones Neg mg/dL (Negative) 12/23/21 08:00 Urine Blood Neg (Negative) 12/23/21 08:00 Urine Nitrite Neg (Negative) 12/23/21 08:00 Urine Bilirubin Neg (Negative) 12/23/21 08:00 Urine Urobilinogen 2.0 mg/dL (<2.0) 12/23/21 08:00 Ur Leukocyte Esterase Neg (Negative) 12/23/21 08:00 Urine WBC (Auto) 1.0 /HPF (0.0-6.0) 12/23/21 08:00 Urine RBC (Auto) 10.0 /HPF (0.0-6.0) 12/23/21 08:00 U Epithel Cells (Auto) 3.0 /HPF (0-13.0) 12/23/21 08:00 Urine Bacteria (Auto) 1+ /HPF (Negative) 12/23/21 08:00 Urine Mucus Few /HPF 12/23/21 08:00 Urine Yeast (Budding) 2+ /HPF 12/23/21 08:00 Microbiology: Microbiology 12/22/21 01:05 Peripheral/Venous Blood Culture - Preliminary NO GROWTH AFTER 48 HOURS 12/22/21 01:33 Peripheral/Venous Blood Culture - Preliminary NO GROWTH AFTER 48 HOURS Can/IV: Voiding Method External Female Catheter Active Medications - Current Medications Current Medications: Generic Name Dose Route Start Last Admin Trade Name Freq PRN Reason Stop Dose Admin Acetaminophen 650 mg 12/22/21 03:52 Acetaminophen 650 Mg Rect Supp NC Q4H PRN Pain MILD(1-3)/Fever >100.5/MOORE Heparin Sodium (Porcine) 5,000 unit 12/22/21 06:00 12/24/21 05:40 Heparin 5,000 Unit/1 Ml Vial SUB-Q Not Given Q8HR RODNEY Sodium Chloride 1,000 mls @ 150 mls/hr 12/22/21 04:00 12/24/21 05:43 Nacl 0.9% 1000 Ml IV 150 mls/hr DIRECT RODNEY Administration Cefepime HCl 2 gm in 100 mls @ 200 mls/hr 12/22/21 10:00 12/23/21 21:15 Cefepime/Ns 2 Gm/100 Ml IV 200 mls/hr Q12H RODNEY Administration Protocol Metronidazole 500 mg in 100 mls @ 100 mls/hr 12/22/21 09:00 12/24/21 00:35 Flagyl 500 Mg/100 Ml IV 100 mls/hr Q8H RODNEY Administration Protocol Vancomycin HCl 750 mg/ Sodium 265 mls @ 166.667 mls/hr 12/22/21 16:00 12/24/21 05:40 Chloride IV 166.667 mls/hr Q12H RODNEY Administration Amino Acids/Electrolytes/Dextrose 1,800 mls @ 75 mls/hr 12/23/21 20:00 12/23/21 20:56 Tpn Adult IV 12/24/21 19:59 75 mls/hr DAILY@2000 RODNEY Administration Protocol Ketorolac Tromethamine 30 mg 12/23/21 11:00 12/23/21 11:36 Ketorolac 30 Mg/1 Ml Inj IV 12/28/21 10:59 30 mg Q6H PRN Administration Pain, Moderate (4-6) Magnesium Hydroxide 30 ml 12/22/21 03:52 Magnesium Hydroxide (Mom) Oral Liqd Udc PO Q4H PRN Constipation Morphine Sulfate 2 mg 12/22/21 03:52 12/22/21 23:51 Morphine 2 Mg/1 Ml Inj IV 2 mg Q4H PRN Administration Pain, Moderate (4-6) Morphine Sulfate 4 mg 12/22/21 03:52 12/22/21 09:58 Morphine 4 Mg/1 Ml Inj IV 4 mg Q4H PRN Administration Pain , Severe (7-10) Ondansetron HCl 4 mg 12/22/21 03:52 Ondansetron 4 Mg/2 Ml Inj IV Q8H PRN Nausea And Vomiting Sodium Chloride 10 ml 12/22/21 10:00 12/23/21 21:54 Sodium Chloride 0.9% 10 Ml Flush Syringe IV 10 ml BID RODNEY Administration Sodium Chloride 10 ml 12/22/21 03:52 Sodium Chloride 0.9% 10 Ml Flush Syringe IV PRN PRN LINE FLUSH Nutrition/Malnutrition Assess - Dietary Evaluation Nutrition/Malnutrition Findings: Nutrition Notes Start: 12/22/21 12:47 Freq: Status: Active Protocol: Document 12/23/21 13:24 RS (Rec: 12/23/21 14:03 RS [id number]) Nutrition Notes Need for Assessment generated from: MD Order Initial or Follow up Reassessment Current Diagnosis Sepsis Other Pertinent Diagnosis PEG tube infection, Dehydration, Stage 4 metastatic Esophageal CA Current Diet TPN Labs/Tests Na: 147 K+: 2.8 Glu: 141 BUN: 24 Cr: 0.5 Ca: 11.0 Cl: 118.4 CO2:20 PO4:2.2 M.5 Pertinent Medications 40meq KCl NaCl 0.9%: 150mL/hr Height 5 ft 6 in Weight 45.359 kg [place] Body Weight (kg) 59.09 BMI 16.1 Weight Status Underweight Subjective/Other Information First day TPN. RD spoke with RN regarding PICC placement. PICC order was placed on but has not been placed. RN reports central port accesss will be utilized for CPN. MD reports PEG tube replacement will not be conducted d/t abdominal wall infection. Burn Absent Trauma Absent Difficulty In Swallowing Skin Integrity/Comment Sacral wound Minimum of two criteria Yes Body Fat Depletion Moderate depletion (severe) Muscle Mass Moderate Depletion (severe) Protein-Calorie Malnutrition Severe #1 Diagnosis Progress(for reassessment Continues documentation) Is patient on ventilator? No Is Patient Ambulatory and/or Out of Bed No REE-([facility]-confined to bed) 1265.436 Kcal/Kg value to use for calculation 40 Approximate Energy Requirements Using 1814 kcal/Kg Calculation Used for Recommendations Kcal/kg Additional Notes Pro needs 1.25-1.5g/k-68g /day Fluid needs 1ml/kcal Nutrition Intervention Nutrition Support: Start CPN 3.9% AA 9% Dextrose 81meq K+ 32meq PO4 14meq Mg MVI + Thiamine package Kcal 824 Protein (gm) 70 Carbohydrates (gm) 160 Fluid (mL) 1,800 Fiber (gm) 0 Goal #1 PN to meet 100% energy and pro needs Goal #2 Wt maintenance and/or gain Follow-Up By: 12/24/21 Additional Comments F/U: Start PN, labs ordered ( BMP, Mg, Phos)
[2021-12-24 08:29] VITALS: BP 104/67
[2021-12-24] MEDS: KETOROLAC 30 MG/1 ML INJ IV PRN ×2 (08:57→14:58)
[2021-12-24] MEDS: CEFEPIME/NS 2 GM/100 ML 2 GM/100 ML BAG IV SCH (09:06)
[2021-12-24] MEDS: MORPHINE 2 MG/1 ML INJ IV PRN (10:16)
--- NOTE | 2021-12-24 11:36 | Discharge Summary ---
Providers - Providers Date of Admission: 12/22/21 03:53 Date of discharge: 12/24/21 Attending physician: ZARINA PERDOMO MD 12/22/21 03:18 Consult to Physician [CONS] Urgent Comment: Dr. Jay spoke with Dr. Bosch @ [phone] Consulting Provider: ESTHER GUTHRIE Physician Instructions: Reason For Exam: Esophageal cancer, dislodged PEG tube 12/22/21 12:42 Consult to Case Management [CONS] Routine Services Needed at Discharge: Other Additional Physician Instructions: hospice 12/22/21 14:14 Consult to Case Management [CONS] Routine Services Needed at Discharge: Other Additional Physician Instructions: Patient has infected PEG tube (now out) and esophageal cancer (can't swallow). Placing a PICC and putting on palliative TPN. Will need home nursing and equipment for TPN. Consult to Dietitian/Nutrition [CONS] Routine Physician Instructions: Infected PEG/esophageal cancer Reason For Exam: Reason for Consult: Write/Manage TPN/PPN Consult to Interventional Radiology [CONS] Routine Consulting Provider: STEPHANIE HICKMAN Reason For Exam: PICC for TPN 12/22/21 14:23 Consult to PICC Line RN [CONS] Urgent Reason For Exam: tpn Type Line:: PICC Primary care physician: TORIN METZ Hospitalization Reason for admission: Sepsis, discharged with PEG tube Condition: Poor Hospital course: 56-year-old female with known history of end-stage was a 5-year past presenting to the emergency room today accompanied by daughter with a complaint of accidental exposure from a PEG tube. Daughter is requesting PEG tube replacement. Patient had PEG tube placed in the left upper quadrant about a month ago at an outside hospital but tube got dislodged today. Otherwise there was no other major complaints. Patient is currently DO NOT RESUSCITATE and DO NOT INTUBATE. Work-up in the emergency room today, significant findings were that of leukocytosis of 19, sodium of 146, BUN of 33 and creatinine of 1.7., Lactic acid of 3.9, calcium 12.7. Chest x-ray is significant for atelectatic changes overlying the right hemidiaphragm. Lungs are otherwise clear. CT of the abdomen and pelvis reveals: 1. Probable metastatic lesions within the liver from known esophageal cancer. 2. Additional 2.1 cm hypoattenuating lesion closely approximating the greater curvature of the stomach and GE junction compatible with known esophageal carcinoma. 3. Tract from the percutaneous gastrostomy tube is well formed with no intra-abdominal abscess. A small amount of fluid along the superficial soft tissues of the abdominal wall within the tract present possibly reflective of superficial abscess. Patient has been started on IV fluid and empiric IV antibiotics. Daughter who is by the bedside request only comfort measures. Hospice care 1.Sepsis 2.Dehydration 3.Hypercalcemia 4.H/O Esophageal Ca. 5.Peg tube Malfunction Severe hypokalemia -Potassium this morning was 2.8 -I ordered 40 mEq of IV potassium, I will recheck BMP this afternoon Plan: 1.Admitted and placed on IV fluid and empiric antibiotics -Blood pressure was low despite bolus of IV fluids -Continue with IV fluids and IV antibiotics; patient is on IV Flagyl, cefepime and vancomycin 2.Will await culture results -Blood cultures negative so far 3.GI consult for peg tube replacement -GI evaluated the patient and recommend palliative TPN, ordered a PICC line. Patient started on TPN -Recommend againest PEG tube replacement because patient has abdominal wall infection I have discussed with the daughter, patient wants to go home. Patient is on home hospice and if the daughter wants to take her is okay to take the patient home and resume home hospice. Patient was seen and evaluated this morning, patient wants to go home. I have a long discussion with her daughter and her daughter decided to take her home to spend her final days at home. Patient was on home hospice care before admission and she will resume that at discharge. Patient prognosis was poor. Disposition: 50 HOSPICE/HOME Final Discharge Diagnosis (Prints w/discharge instructions): Sepsis. Dislodged PEG tube. Stage IV esophageal cancer Time spent for discharge: 35 minutes - Discharge Diagnoses (1) Abdominal wall abscess at site of surgical wound Status: Acute (2) Esophageal cancer, stage IV Status: Acute Core Measure Documentation - Palliative Care Palliative Care/ Comfort Measures: Hospice Care - Core Measures Any of the following diagnoses?: none Exam - Physical Exam Narrative exam: Not in cardiopulmonary distress. The patient appeared well nourished and normally developed. Vital signs as documented. Head exam is unremarkable. No scleral icterus . Neck is without jugular venous distension, thyromegaly, or carotid bruits. Lungs are clear to auscultation. Cardiac exam reveals regular rate and Rhythm. Abdominal exam reveals normal bowel sounds, nontender, no organomegaly. Extremities are nonedematous and both femoral and pedal pulses are normal. 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 But she says she wants to go home repeatedly. - Constitutional Vitals: Temp Pulse Resp BP Pulse Ox 98.1 F 111 H 18 104/67 98 12/24/21 08:16 12/24/21 08:16 12/24/21 08:16 12/24/21 08:16 12/24/21 08:16 Plan Activity: no restrictions Weight Bearing Status: Full Weight Bearing Diet: advance as tolerated Follow up with: TORIN METZ MD [Primary Care Provider] - 7 Days
== END 2021-12-24 19:13 | disposition hospice, home (50) | DRG 393 ==
LOC: ED 23:55 → 4A 12-22 03:53
PROVIDERS: ADMIT Internal Medicine Geriatric Medicine; ATTEND Internal Medicine
PROC: 02JY3ZZ Inspection of Great Vessel, Percutaneous Approach (ICD-10-PCS; principal; 2021-12-22)
DX: K94.23 Gastrostomy malfunction (principal); A41.9 Sepsis, unspecified organism; C15.9 Malignant neoplasm of esophagus, unspecified; L02.211 Cutaneous abscess of abdominal wall; E86.0 Dehydration; E83.52 Hypercalcemia; Z66 Do not resuscitate; Y83.8 Other surgical procedures as the cause of abnormal reaction of the patient, or of later complication, without mention of misadventure at the time of the procedure; E87.6 Hypokalemia; Z51.5 Encounter for palliative care
CPT/HCPCS: 36415; 71045; 74177; 80048; 80053; 81001; 82140; 82310; 82550; 82962; 83735; 84100; 84443; 85025; 85730; 87040; 87086; 93005; G0378; J7517; J0692; J1642; J1885; J2270; J2405; J2543; J3370; J3475; J3480; J7030; J7040; J7050; J7120; Q9967